=== PATIENT | female | born 1970 | race Hispanic/Latino ===

== ENCOUNTER 2018-02-20 17:45 | Emergency (ER) | payer OTHER ==
[2018-02-20 19:33] LABS: CLARITY,URINE CLEAR (CLEAR); COLOR,URINE YELLOW (YELLOW)
[2018-02-20 19:34] LABS: BILIRUBIN,URINE NEGATIVE (NEGATIVE); KETONES,URINE NEGATIVE (NEGATIVE); LEUKOCYTE ESTERASE ,URINE NEGATIVE (NEGATIVE); NITRITE,URINE NEGATIVE (NEGATIVE); PROTEIN,URINE DIPSTICK NEGATIVE (NEGATIVE); URINE UROBILINOGEN 0.2 mg/dL (0.2 - 1)
[2018-02-20 19:45] LABS: WBC,URINE (MAN) 0-5 /HPF (0-5)
[2018-02-20 19:46] LABS: EPITHELIAL CELLS,URINE MANY /LPF; MUCUS,URINE FEW (RARE); RBC,URINE 0-5 /HPF (0-5)
--- NOTE | 2018-02-20 19:49 | Diagnostic Imaging Report ---
EXAMINATION: CHEST SINGLE (NOT PORTABLE) INDICATION: \S\left side chest wall pain COMPARISON: None FINDINGS: AP view TUBES and LINES: None. LUNGS: Lungs are well inflated. Lungs are clear. There is no evidence of pneumonia or pulmonary edema. PLEURA: No pleural effusion or pneumothorax. HEART AND MEDIASTINUM: The cardiomediastinal silhouette is unremarkable. BONES AND SOFT TISSUES: No acute osseous lesion. Soft tissues are unremarkable. UPPER ABDOMEN: No free air under the diaphragm. IMPRESSION: No acute thoracic abnormality. Signed by: Dr. Elbert Sandhu M.D. on 02/20/2018 7:46 PM
[2018-02-20 20:47] LABS: BASOPHILS % 0.2 % (0.0-1.0); EOSINOPHILS # (AUTO) 0.1 (0.0-0.4); EOSINOPHILS % 1.4 % (0.0-6.0); HEMATOCRIT 43.4 % (34.2-44.1); HEMOGLOBIN 14.6 g/dL (12.0-16.0); LYMPHOCYTES # (AUTO) 1.1 (1.0-3.2); LYMPHOCYTES % 26.7 % (18.0-39.1); MEAN CORPUSCULAR HEMOGLOBIN 29.7 pg (28-32); MEAN CORPUSCULAR HGB CONC 33.6 g/dL (31-35); MEAN CORPUSCULAR VOLUME 88.2 fL (81-99); MONOCYTES # (AUTO) 0.3 (0.2-0.8); MONOCYTES % 6.4 % (4.4-11.3); NEUTROPHILS # (AUTO) 2.8 (2.1-6.9); NEUTROPHILS % 65.1 % (38.7-80.0); PLATELET COUNT 111 x10e3/uL (140-360); RED BLOOD COUNT 4.92 x10e6/uL (3.6-5.1); RED CELL DISTRIBUTION WIDTH 13.6 % (11.7-14.4)
[2018-02-20 20:57] LABS: PARTIAL THROMBOPLASTIN TIME 26.2 seconds (23.8-35.5)
[2018-02-20 21:03] LABS: INR 0.98; PROTHROMBIN TIME 12.2 seconds (11.9-14.5)
[2018-02-20 21:07] LABS: ALANINE AMINOTRANSFERASE 91 IU/L (0-55); ALBUMIN 3.6 g/dL (3.5-5.0); ALKALINE PHOSPHATASE 230 IU/L (40-150); ANION GAP 10.9 mmol/L (8-16); BLOOD UREA NITROGEN 16 mg/dL (7-26); BUN/CREATININE RATIO 23 (6-25); CALCIUM 9.7 mg/dL (8.4-10.2); CARBON DIOXIDE 28 mmol/L (22-29); CHLORIDE 108 mmol/L (98-107); CREATINE KINASE 91 IU/L (29-168); CREATININE, SERUM 0.69 mg/dL (0.57-1.11); EST GLOMERULAR FILTRATION RATE > 60 ML/MIN (60-); GLUCOSE 172 mg/dL (74-118); MAGNESIUM 2.5 MG/DL (1.3-2.1); POTASSIUM 3.9 mmol/L (3.5-5.1); SODIUM 143 mmol/L (136-145)
[2018-02-20 21:49] VITALS: BP 155/68
== END 2018-02-20 21:50 | disposition home or self-care (01) ==
LOC: ER 17:45
DX: R07.89 Other chest pain (principal); I10 Essential (primary) hypertension
CPT/HCPCS: 36415; 71045; 80053; 81001; 82550; 82553; 83735; 84484; 84702; 85025; 85610; 85730; 93005; 99284

== ENCOUNTER 2018-02-27 00:21 | Observation (INO) | payer OTHER ==
[2018-02-27] VITALS (8 sets, daily range): BP systolic 106–137; BP diastolic 53–84
[~2018-02-27] VITALS: Ht 160 cm; Wt 94.8 kg
[2018-02-27 01:02] LABS: BASOPHILS % 0.3 % (0.0-1.0); EOSINOPHILS # (AUTO) 0.1 (0.0-0.4); EOSINOPHILS % 1.8 % (0.0-6.0); HEMATOCRIT 42.5 % (34.2-44.1); HEMOGLOBIN 14.7 g/dL (12.0-16.0); LYMPHOCYTES # (AUTO) 1.1 (1.0-3.2); LYMPHOCYTES % 27.4 % (18.0-39.1); MEAN CORPUSCULAR HGB CONC 34.6 g/dL (31-35); MEAN CORPUSCULAR VOLUME 86.7 fL (81-99); MONOCYTES # (AUTO) 0.3 (0.2-0.8); MONOCYTES % 7.4 % (4.4-11.3); NEUTROPHILS # (AUTO) 2.5 (2.1-6.9); NEUTROPHILS % 62.8 % (38.7-80.0); PLATELET COUNT 104 x10e3/uL (140-360); RED CELL DISTRIBUTION WIDTH 13.3 % (11.7-14.4)
[2018-02-27 01:06] LABS: ALANINE AMINOTRANSFERASE 75 IU/L (0-55); ALBUMIN 3.4 g/dL (3.5-5.0); ALBUMIN/GLOBULIN RATIO 0.9 (0.8-2.0); ALKALINE PHOSPHATASE 228 IU/L (40-150); ANION GAP 13.4 mmol/L (8-16); BLOOD UREA NITROGEN 21 mg/dL (7-26); BUN/CREATININE RATIO 25 (6-25); CALCIUM 9.9 mg/dL (8.4-10.2); CARBON DIOXIDE 24 mmol/L (22-29); CHLORIDE 107 mmol/L (98-107); CREATINE KINASE 84 IU/L (29-168); CREATININE, SERUM 0.85 mg/dL (0.57-1.11); EST GLOMERULAR FILTRATION RATE > 60 ML/MIN (60-); GLUCOSE 234 mg/dL (74-118); POTASSIUM 4.4 mmol/L (3.5-5.1); SODIUM 140 mmol/L (136-145)
--- NOTE | 2018-02-27 01:54 | Diagnostic Imaging Report ---
EXAMINATION: CHEST SINGLE (PORTABLE) INDICATION: Pain during breathing COMPARISON: 02/20/2018 FINDINGS: TUBES and LINES: None. LUNGS: Lungs are not well inflated. There are bibasilar atelectasis. There is no evidence of pneumonia or pulmonary edema. PLEURA: No pleural effusion or pneumothorax. HEART AND MEDIASTINUM: The cardiomediastinal silhouette is unremarkable. BONES AND SOFT TISSUES: No acute osseous lesion. Soft tissues are unremarkable. UPPER ABDOMEN: No free air under the diaphragm. IMPRESSION: No acute thoracic abnormality. Signed by: Dr. Reza Rhodes M.D. on 02/27/2018 1:50 AM
[2018-02-27] MEDS ORDERED: SODIUM CHLORIDE FLUSH 10 ML SYR INJ PRN (02:15)
[2018-02-27] MEDS ORDERED: MORPHINE SULFATE 2 MG/ML SYR IV PRN ×2 (02:15→07:15)
[2018-02-27] MEDS: FAMOTIDINE 20 MG/2 ML VIAL IV SCH ×2 (02:48→14:55)
[2018-02-27] MEDS ORDERED: DEXTROSE 50% SYRINGE 50 ML IV PRN (04:00)
[2018-02-27] MEDS: ONDANSETRON HCL INJ 2 MG/ML VIAL IV PRN ×2 (04:04→12:18)
[2018-02-27] MEDS: METOPROLOL TARTRATE 25 MG TAB PO SCH ×3 (07:00→16:53)
[2018-02-27] MEDS ORDERED: NITROGLYCERIN 0.4 MG SUBL SL PRN (07:00)
[2018-02-27] MEDS: INSULIN REGULAR, HUMAN 100 UNIT/1 ML 3ML VIAL SQ SCH ×4 (07:30→21:00)
[2018-02-27] MEDS: ASPIRIN 81 MG ENTERIC COATED PO SCH (07:55)
[2018-02-27 08:10] LABS: CREATINE KINASE MB 2.1 ng/mL (0-5.0)
[2018-02-27 08:21] LABS: CHOL/HDL RATIO 3.4 (3.0-3.6)
--- NOTE | 2018-02-27 08:50 | Consultation ---
DATE OF CONSULTATION: February 27, 2018 CARDIOLOGY CONSULTATION REASON FOR CONSULTATION: Chest pain. CONSULTING PHYSICIAN: Dr. Espana HPI: This is a 48-year-old female that presented with chest pain. According to the patient, she has been having chest discomfort for 3 weeks now. She stated last week she was in the ER with chest pain. She was sent home. She says she got home and the pain continued that she decided to come to the emergency room for further evaluation. She described it as a left substernal chest pressure that hurts with deep breathing accompanied with dizziness. She described the pain on a scale of 7/10 with no radiation. She also complained of near syncope and passing out without any fall. She does not have any PCP. She is not on any medications. She has a strong family history of diabetes and high blood pressure. Her EKG showed no S/T abnormalities. PAST MEDICAL HISTORY: None per the patient because she does not have any PCP, and does not do any followup. PAST SURGICAL HISTORY: Hysterectomy. FAMILY HISTORY: Positive for high blood pressure and diabetes. SOCIAL HISTORY: No smoking. No drinking. She lives at home with family. MEDICATIONS: None. ALLERGIES: SHE IS NOT ALLERGIC TO ANY MEDICATION. REVIEW OF SYSTEMS: Negative except those mentioned above. She is positive for unstable angina. PHYSICAL EXAMINATION VITALS: Temperature 97, heart rate 66, blood pressure 150/107, respirations 18, oxygen saturation 96% on room air. GENERAL: She is awake, alert and oriented times 3. HEENT: Mucous membrane moist. NECK: Supple. LUNGS: Bilateral clear to auscultation. CARDIOVASCULAR: S1 and S2 present. ABDOMEN: Soft. NEUROLOGICAL: Intact. EXTREMITIES: With no edema. LABS: Sodium 140 potassium 4.4, chloride 107, CO2 24, BUN 21, creatinine 0.85, glucose 234. Hemoglobin 14.7, hematocrit 42.5 and platelets 104,000. IMPRESSION 1. Chest pain. 2. Hypertension. 3. Near syncope. 4. Obesity. 5. Possible diabetes. ASSESSMENT AND PLAN: Will go ahead and get serial cardiac enzymes. Get echocardiogram to assess the LV and valve function. Get bilateral carotid Doppler. Check hemoglobin A1c and lipid panel. Due to her symptoms and risk factors, will go ahead and set her up for a Lexiscan Myoview to rule out any occlusion. Risk and benefit explained to her and she agreed with her daughters at the bedside. Further cardiac workup pending clinical course. Thank you for this consultation. DICTATED BY FRANCISCO SERVIN NP Job#: [id number] RI
[2018-02-27] MEDS ORDERED: REGADENOSON 0.4 MG/5 ML SYR IV ONE (09:02)
--- NOTE | 2018-02-27 10:34 | History and Physical ---
She is a 48-year-old female patient of mine with the complaint of chest pain. HISTORY OF PRESENT ILLNESS: Ms. Yesi Covarrubias presented to the emergency room. This is the 2nd visit for the chest pain. The patient is complaining of retrosternal chest pressure type of symptoms of 4/10. The patient denies any shortness of breath, cough, nausea, or vomiting, or fever. REVIEW OF SYSTEMS: As per history of present illness. PAST MEDICAL HISTORY: Diabetes mellitus, hypertension. PAST SURGICAL HISTORY: Hysterectomy. ALLERGIES: NO KNOWN DRUG ALLERGIES. MEDICATIONS: See from the list. SOCIAL HISTORY: Denies smoking. Denies using alcohol. FAMILY HISTORY: Diabetes mellitus, hypertension. PHYSICAL EXAMINATION GENERAL: She is a middle-aged female patient lying in bed not in any acute distress. VITALS: Temperature 98, pulse rate 88, blood pressure 140/90. HEENT: Normocephalic and atraumatic. No JVD. No lymphadenopathy. LUNGS: Bilateral equal fair air entry. No rales. No rhonchi. HEART: S1 and S2 regular. No murmur. No gallop. ABDOMEN: Soft. Bowel sounds present. NEUROLOGICAL: No focal neurological deficit. ADMITTING IMPRESSION/DIAGNOSES 1. Chest pain. 2. Unstable angina. 3. Rule out myocardial infarction. 4. Abnormal electrocardiogram. 5. Left bundle branch block. 6. Diabetes. 7. Hypertension. HOSPITAL COURSE: The patient will be admitted with the above diagnosis. The patient will get echo and stress test, and serial cardiac enzymes. Acute DE will be ruled out. Will do CT of chest. Job#: [id number] SHANNAN
[2018-02-27] MEDS ORDERED: IOPAMIDOL 370 MG/ML 200 ML INFUS..BTL INJ ONE (14:14)
[2018-02-27] MEDS ORDERED: SODIUM CHLORIDE 0.9% 50ML 50 ML ONE (14:14)
--- NOTE | 2018-02-27 14:54 | Diagnostic Imaging Report ---
PROCEDURE:ABDOMINAL ULTRASOUND COMPARISON:None. INDICATIONS:CP, ELEVATED ENZYMES TECHNIQUE: Rosenbaum-scale and color sonographic images were obtained of the abdomen in transverse and sagittal planes. FINDINGS:Exam limited by patient body habitus. Liver: 12.8 cm in length in right midclavicular line. Increased echogenicity. No masses. Main portal vein: 1.0 cm, hepatopetal flow Gallbladder: Absent Common Bile Duct: 0.6 cm. Sonographic Dodge's sign: Negative Right kidney: 10.1 cm. Left kidney: 12.6 cm. Normal echogenicity. No hydronephrosis, stones, or focal lesions. Spleen: 12.6 cm, borderline enlarged. Pancreas: The visualized portions are unremarkable. Inferior vena cava: Patent Aorta: Within normal limits Ascites: None CONCLUSION: 1. Increased echogenicity of the hepatic parenchyma consistent with steatosis. No focal lesions. 2. Borderline splenomegaly. 3. Status post cholecystectomy. Avila Gonzalez M.D. Dictated by: Avila Gonzalez M.D. on 02/27/2018 at 14:13 Electronically approved by: Avila Gonzalez M.D. on 02/27/2018 at 14:13
--- NOTE | 2018-02-27 18:11 | Diagnostic Imaging Report ---
PROCEDURE: CT scan of the chest WITH intravenous contrast, using standard protocol. TECHNIQUE: The chest was scanned utilizing a multidetector helical scanner from the lung apex through the level of the adrenal glands after the IV administration of 100 cc of Isovue 370. Coronal and sagittal multiplanar reformations were obtained. COMPARISON: [facility], , CHEST SINGLE (PORTABLE), 02/27/2018, 0:52. INDICATIONS: CHEST PAIN FINDINGS: Lines/tubes: None. Lungs and Airways: Lungs are clear. No consolidation, masses, opacities or pulmonary nodules. Airways are clear, without endobronchial lesions. Pleura: The pleural spaces are clear. Heart and mediastinum: Thyroid is unremarkable. Heart size is normal. No pericardial effusion. The aorta is non-aneurysmal. Main pulmonary artery is enlarged, measuring 3.2 cm. Lymph nodes: No mediastinal, hilar, or axillary adenopathy. Abdomen: Limited contrast-enhanced views of the upper abdomen show diffuse hepatic steatosis. No focal lesions. Cholecystectomy clips. Mild splenomegaly, measuring 15.9 cm in AP diameter. Fatty replacement of the pancreas, without focal lesions. Cortical scarring in the superior pole the right kidney. Adrenal glands are unremarkable.. Bones: No aggressive lytic lesions. Multilevel degenerative disc changes in the lower thoracic spine. IMPRESSION: 1. Unremarkable chest CT. 2. Diffuse hepatic steatosis. 3. Mild splenomegaly. Avila Gonzalez M.D. Dictated by: Avila Gonzalez M.D. on 02/27/2018 at 18:16 Electronically approved by: Avila Gonzalez M.D. on 02/27/2018 at 18:16
[2018-02-27 18:17] LABS: CREATINE KINASE MB 2.4 ng/mL (0-5.0)
[2018-02-28] VITALS: BP 119/69
[2018-02-28] MEDS: FAMOTIDINE 20 MG/2 ML VIAL IV SCH (02:44)
[2018-02-28 04:00] VITALS: BP 129/69
[2018-02-28 05:06] LABS: BASOPHILS % 0.2 % (0.0-1.0); EOSINOPHILS # (AUTO) 0.1 (0.0-0.4); EOSINOPHILS % 1.9 % (0.0-6.0); HEMATOCRIT 43.6 % (34.2-44.1); HEMOGLOBIN 14.3 g/dL (12.0-16.0); LYMPHOCYTES # (AUTO) 1.2 (1.0-3.2); LYMPHOCYTES % 26.1 % (18.0-39.1); MEAN CORPUSCULAR HEMOGLOBIN 29.7 pg (28-32); MEAN CORPUSCULAR HGB CONC 32.8 g/dL (31-35); MEAN CORPUSCULAR VOLUME 90.5 fL (81-99); MONOCYTES # (AUTO) 0.4 (0.2-0.8); MONOCYTES % 7.6 % (4.4-11.3); NEUTROPHILS % 63.8 % (38.7-80.0); PLATELET COUNT 102 x10e3/uL (140-360); RED BLOOD COUNT 4.82 x10e6/uL (3.6-5.1); RED CELL DISTRIBUTION WIDTH 13.6 % (11.7-14.4)
[2018-02-28 05:35] LABS: ALANINE AMINOTRANSFERASE 74 IU/L (0-55); ALBUMIN 3.1 g/dL (3.5-5.0); ALBUMIN/GLOBULIN RATIO 0.9 (0.8-2.0); ALKALINE PHOSPHATASE 197 IU/L (40-150); ANION GAP 12.4 mmol/L (8-16); BLOOD UREA NITROGEN 20 mg/dL (7-26); BUN/CREATININE RATIO 27 (6-25); CALCIUM 9.5 mg/dL (8.4-10.2); CARBON DIOXIDE 29 mmol/L (22-29); CHLORIDE 106 mmol/L (98-107); CHOL/HDL RATIO 3.3 (3.0-3.6); CHOLESTEROL 203 MD/DL (0-199); CREATININE, SERUM 0.75 mg/dL (0.57-1.11); EST GLOMERULAR FILTRATION RATE > 60 ML/MIN (60-); GLUCOSE 129 mg/dL (74-118); HDL CHOLESTEROL 61 MG/DL (40-60); LDL CHOLESTEROL 112 MG/DL (60-130); POTASSIUM 4.4 mmol/L (3.5-5.1); SODIUM 143 mmol/L (136-145); TRIGLYCERIDES 152 MG/DL (0-149)
[2018-02-28] MEDS: INSULIN REGULAR, HUMAN 100 UNIT/1 ML 3ML VIAL SQ SCH ×2 (07:30→11:30)
[2018-02-28 07:40] VITALS: BP 114/81
[2018-02-28 08:00] VITALS: BP 114/81
[2018-02-28] MEDS: ASPIRIN 81 MG ENTERIC COATED PO SCH (09:03)
[2018-02-28] MEDS: METOPROLOL TARTRATE 25 MG TAB PO SCH (09:04)
--- NOTE | 2018-02-28 11:08 | Discharge Summary ---
HISTORY: She is a 48-year-old female patient of mine with history of diabetes mellitus and hypertension, presented to the emergency room with a complaint of chest pain. ADMITTING IMPRESSION/DIAGNOSES 1. Atypical chest pain with abnormal EKG and suspected unstable angina. 2. Abnormal liver function test. 3. Diabetes mellitus. 4. Obesity. HOSPITAL COURSE SUMMARY: Patient was admitted with above diagnoses. Patient was treated with aspirin and nitro. A Lexiscan stress test was done by Dr. Moore. The preliminary report is negative, final report is pending. Echocardiogram was done, which was normal EF, no significant valvular disease. A CT chest was done to rule out PE and no PE. Patient also had ultrasound of abdomen, which showed fatty liver. So now upon stabilization, patient is chest pain free and will be discharged home and will be followed up as outpatient for fatty liver, diabetes mellitus, and hypertension. ZION MCCALL MD Job#: [id number] LPA
[2018-02-28 11:21] VITALS: BP 102/62
--- NOTE | 2018-02-28 12:10 | Cardiology Report ---
DATE OF STUDY: February 27, 2018 LEXISCAN NUCLEAR STRESS TEST INDICATIONS: Chest pain. DESCRIPTION OF PROCEDURE: After informed consent, the patient was brought to the stress lab. She was given 11 mCi of technetium 99 Myoview, and myocardial perfusion SPECT images were obtained in horizontal long and short axis and vertical long axis. Subsequently, the patient was given 0.4 mg Lexiscan over 10 seconds. Patient was given 32 mCi of technetium 99 Myoview, and myocardial perfusion SPECT images obtained in horizontal long and short axis and vertical long axis. Gated images were also obtained. Patient tolerated the procedure without any complications. REPORT: Baseline EKG shows sinus rhythm at 80 beats per minute, leftward axis, left bundle branch block, secondary ST-T changes. PARAMETERS 1. Resting heart rate is 85 beats per minute. 2. Maximum heart rate is 119 beats per minute. 3. Resting blood pressure is 164/80. 4. Maximum blood pressure is 189/92 mmHg. INTERPRETATION 1. Negative for chest pain. 2. Negative for arrhythmias. 3. Blood pressure response consistent with Lexiscan. 4. No significant ST-T changes seen during Lexiscan infusion compared to baseline. 5. Analysis of SPECT images reveals uniform radioisotope uptake in all segments of the myocardium without any significant perfusion defects. CONCLUSIONS 1. No evidence of significant ischemia or infarction on this study. 2. No wall motion abnormalities. 3. Overall ejection fraction is 64%. Job#: [id number]
[2018-02-28] MEDS ORDERED: LISINOPRIL2.5 MG PO (12:37)
[2018-02-28] MEDS ORDERED: METFORMIN HCL500 MG PO (12:37)
[2018-02-28] MEDS ORDERED: ASPIR 8181 MG PO (12:38)
[2018-02-28] MEDS ORDERED: FAMOTIDINE 20 MG TAB PO SCH (16:30)
== END 2018-02-28 13:09 | disposition home or self-care (01) ==
LOC: ER 00:21 → ERHOLD 02:14 → IMCU 03:13
PROVIDERS: ADMIT Internal Medicine; ATTEND Internal Medicine
DX: R07.89 Other chest pain (principal); I20.0 Unstable angina; I44.7 Left bundle-branch block, unspecified; E11.9 Type 2 diabetes mellitus without complications; I10 Essential (primary) hypertension; R94.31 Abnormal electrocardiogram [ECG] [EKG]; R55 Syncope and collapse; E66.9 Obesity, unspecified; Z68.36 Body mass index [BMI] 36.0-36.9, adult; R79.89 Other specified abnormal findings of blood chemistry
CPT/HCPCS: 36415 ×2; 71045; 71260; 76700; 78452; 80053 ×2; 80061 ×2; 82550; 82553; 82948 ×2; 83036; 84484; 85025 ×2; 93005; 93017; 93306; 93880; 97139; 99284; A9502; G0378 ×2; J2270; J2405; Q9967

== ENCOUNTER → 2018-03-12 | Outpatient (CLI) | payer OTHER ==
[~2018-03-12] MED LIST: ASPIR 8181 MG PO; LISINOPRIL2.5 MG PO; METFORMIN HCL500 MG PO
--- NOTE | 2018-03-12 16:14 | Diagnostic Imaging Report ---
PROCEDURE:C-SPINE COMPLETE COMPARISON:None. INDICATIONS:SPONDYLOSIS WITHOUT MYELOPATHY FINDINGS: The lateral view is visualized from the skull base to the C6-C7. The vertebral bodies are well-aligned. Vertebral body heights are maintained. There are no fractures, lytic or blastic lesions. The disc-space heights are well-maintained. Multilevel degenerative changes. The C1/C2-odontoid interval is normal. The pre-vertebral soft tissues are normal. CONCLUSION: No acute fracture or subluxation. Degenerative changes. Dictated by: Jarred Benjamin M.D. on 03/12/2018 at 16:20 Electronically approved by: Jarred Benjamin M.D. on 03/12/2018 at 16:20
== END ==
LOC: MAMMO 10:44
PROVIDERS: ATTEND Internal Medicine
DX: Z12.31 Encounter for screening mammogram for malignant neoplasm of breast (principal); M47.812 Spondylosis without myelopathy or radiculopathy, cervical region
CPT/HCPCS: 72050; 77067

== ENCOUNTER → 2018-04-10 | Outpatient (CLI) | payer OTHER ==
--- NOTE | 2018-04-11 08:57 | Diagnostic Imaging Report ---
#[id number] - USBRELIMLT ULTRASOUND OF THE LEFT BREAST : 04/10/2018 No prior exams were available for comparison. Color flow and real-time ultrasound were performed on the left breast with scanning from 9-5 o'clock. -At 1 o'clock 3 cm from the nipple are two adjacent hypoechoic nodules in the deep tissues measuring 4 x 2 x 4 mm and 4 x 3 x 4 mm. These have a benign appearance and likely correspond to the mammographic findings. -At 5 o'clock 2 cm from the nipple there is a benign cyst measuring 5 x 3 x 4 mm. IMPRESSION: PROBABLY BENIGN - FOLLOW-UP RECOMMENDED A follow-up ultrasound in 6 months is recommended to demonstrate stability involving the two hypoechoic nodules noted at 1 o'clock. The patient was notified of the need for followup. David Moreno Jr., D.O. cw/:04/10/2018 14:50:02 Pump House Engineer: [facility], [facility] letter sent: Followup Recommended Ultrasound BI-RADS: 3 Probably benign
--- NOTE | 2018-04-11 08:57 | Diagnostic Imaging Report ---
#[id number] - MGDXLT #UNILATERAL LEFT DIGITAL DIAGNOSTIC MAMMOGRAM WITH SPOT COMPRESSION: 04/10/2018 Comparison is made to exam dated: 03/12/2018 mammogram - [facility]. Current study contains 3 films. There are scattered fibroglandular elements in the left breast. Focal spot compression confirms 2 small nodules in the left breast deep to the nipple in the 1-2 o'clock position. No significant masses, calcifications, or other findings are seen in the breast. IMPRESSION: INCOMPLETE: NEEDS ADDITIONAL IMAGING EVALUATION Persistent nodules in the left breast require additional evaluation with ultrasound. Focused ultrasound will be performed today. David Moreno Jr., D.O. cw/:04/10/2018 14:29:45 Life Skills Instructor: Chantelle VARGAS(Eric)(M), [facility] letter sent: Additional Imaging Needed Mammogram BI-RADS: 0 Indeterminate
== END ==
LOC: MAMMO 12:28
PROVIDERS: ATTEND Internal Medicine
DX: N63.20 Unspecified lump in the left breast, unspecified quadrant (principal)

== ENCOUNTER → 2020-04-06 | Day surgery (SDC) | payer OTHER ==
[~2020-04-06] MED LIST changes: +DICYCLOMINE HCL10 MG PO; +FENTANYL CITRATE/PF 100MCG/2 ML INJ ONE; +GLUCAGON FOR INJ 1 MG VIAL ONE; +HYOSCYAMINE 0.125 MG TAB ONE; +LIDOCAINE HCL 2% LOCAL INJ 5 ML SDV VIAL INJ ONE; +LIPITOR10 MG PO; +MIDAZOLAM HCL 2 MG/2 ML VIAL ONE; +PROPOFOL IV EMULSION 10 MG/ML 20 ML VIAL ONE
[2020-04-06 13:15] VITALS: BP 109/72
--- NOTE | 2020-04-06 14:34 | Operative Report ---
DATE OF PROCEDURE: 04/06/2020 SURGEON: Wojciech Brar MD PROCEDURES: EGD with biopsies and a colonoscopy with polypectomy. INDICATIONS FOR EGD: Upper abdominal pain, bloating, nausea. INDICATIONS FOR COLONOSCOPY: Colorectal cancer screening. MEDICATIONS: The patient was done under MAC, please see anesthesiologist's note. PROCEDURE IN DETAIL: With the patient in the left lateral decubitus position, a flexible fiberoptic Olympus gastroscope was introduced into the esophagus under direct visualization without any difficulty. There was some patchy erythema noted in distal esophagus. The scope was then advanced with ease into the stomach and mucosa overlying the antrum and the body revealed some diffuse erythema and [id number] edema, and biopsies were obtained and sent to stain for H. pylori. Pylorus was of normal contour and shape, was intubated with ease and the scope was advanced all the way to the second portion of the duodenum. Biopsies were obtained from the proximal second portion and the duodenal bulb to rule out sprue. The scope was then withdrawn back into the stomach and retroflexed, and mucosa overlying the fundus and the cardia appeared to be within normal limits. The scope was then straightened out. The stomach was decompressed. The scope was subsequently withdrawn and the patient tolerated the procedure well. IMPRESSION: 1. Distal esophagitis, mild. 2. Gastritis, biopsied, biopsies sent to stain for Helicobacter pylori. 3. Rule out sprue. PLAN: Follow up histology. Initiate Protonix 40 mg one p.o. q.a.m. before meals. The patient was then turned around and after adequate lubrication of the anal canal, a flexible fiberoptic Olympus colonoscope was inserted into the rectum with ease and advanced all the way to ? transverse colon. The scope was not advanced any further secondary to the presence of a large amount of retained fecal material. The scope was then withdrawn slowly, whatever was visualized the mucosa overlying the distal transverse and descending grossly appeared to be within normal limits. One polyp was hot biopsied from the distal sigmoid colon. Whatever was visualized the rectum appeared to be within normal limits. The scope was then retroflexed and whatever was visualized to the area around the dentate line was partially visualized due to the presence of retained fecal material and there were some small internal hemorrhoids, none actively bleeding. The scope was then straightened out, it was subsequently withdrawn, and the patient tolerated the procedure well. IMPRESSION: 1. Poor prep. 2. Sigmoid colon polyp, hot biopsied. 3. Internal hemorrhoids, none actively bleeding. PLAN: Follow up histology. We will need a repeat colonoscopy after a better prep. Wojciech Brar MD [facility] [place] /[id number] cc: Beto Robert MD
== END | disposition home or self-care (01) ==
LOC: OR 08:11
PROVIDERS: ATTEND Internal Medicine Gastroenterology
DX: K59.00 Constipation, unspecified (principal); K63.5 Polyp of colon; K29.50 Unspecified chronic gastritis without bleeding; B96.81 Helicobacter pylori [H. pylori] as the cause of diseases classified elsewhere; K21.9 Gastro-esophageal reflux disease without esophagitis; K20.9 Esophagitis, unspecified; K31.89 Other diseases of stomach and duodenum; K64.8 Other hemorrhoids; E11.9 Type 2 diabetes mellitus without complications; I10 Essential (primary) hypertension; I44.7 Left bundle-branch block, unspecified; I44.0 Atrioventricular block, first degree; Z01.812 Encounter for preprocedural laboratory examination; Z11.59 Encounter for screening for other viral diseases; Z68.34 Body mass index [BMI] 34.0-34.9, adult
CPT/HCPCS: 36415; 43239; 45384; 82948; J1610; J2001; J2250; J2704; J3010; U0002; 45378

== ENCOUNTER → 2023-01-11 | Outpatient (CLI) | payer OTHER ==
[~2023-01-11] MED LIST changes: -FENTANYL CITRATE/PF 100MCG/2 ML INJ ONE; -GLUCAGON FOR INJ 1 MG VIAL ONE; -HYOSCYAMINE 0.125 MG TAB ONE; -LIDOCAINE HCL 2% LOCAL INJ 5 ML SDV VIAL INJ ONE; -MIDAZOLAM HCL 2 MG/2 ML VIAL ONE; -PROPOFOL IV EMULSION 10 MG/ML 20 ML VIAL ONE
== END ==
LOC: RAD 14:44
PROVIDERS: ATTEND Family Medicine
DX: M25.512 Pain in left shoulder (principal); M25.511 Pain in right shoulder